=== PATIENT | male | born 2000 | race Caucasian/White ===

== ENCOUNTER 2021-04-11 15:10 | Emergency (ER) | payer SELFPAY ==
[2021-04-11 15:23] VITALS: BP 115/68; PULSE 70; TEMP 97; BMI 22.9
== END 2021-04-11 17:40 | disposition home or self-care (01) ==
LOC: JERFT 15:10 → JER 15:10 → JERFT 17:40
DX: B35.3 Tinea pedis (principal)
CPT/HCPCS: 99281-25

== ENCOUNTER 2021-10-18 11:59 | Emergency (ER) | payer OTHER ==
[2021-10-18 12:14] VITALS: BP 121/64; PULSE 61; TEMP 98.3; BMI 21.5
== END 2021-10-18 13:55 | disposition home or self-care (01) ==
LOC: JERFT 11:59 → JER 11:59 → JERFT 13:55
DX: B35.0 Tinea barbae and tinea capitis (principal)
CPT/HCPCS: 99281-25